=== PATIENT | male | born 1990 | race African-American/Black ===

== ENCOUNTER 2018-08-06 10:39 | Inpatient (IN) ==
[2018-08-06 11:15] LABS: Basophils % 0.4 % (0.0-0.8); Eosinophils % 0.4 % (0.00-10.9); Hematocrit 41.4 VOL% (42.0-52.0); Immature Granulocytes % 0.4 %; Immature Granulocytes Absolute 0.03 #; Lymphocytes # 1.4 10*3/uL (1.4-4.0); Lymphocytes % 18.3 % (21.2-54.2); Mean Corpuscular HGB Conc 31.4 GM/DL (32-36); Mean Corpuscular Hemoglobin 28 PG (27-34); Mean Corpuscular Volume 89.4 FL (87-102); Mean Platelet Volume 11.3 FL (9.6-12.0); Monocytes # 1.3 10*3/uL (0.11-0.8); Monocytes % 15.9 % (1.7-12.7); Neutrophils # 5.1 10*3/uL (1.4-7.4); Neutrophils % 64.6 % (38.7-73.9); Platelet Count 223 T/CUMM (130-400); Red Blood Count 4.63 MC/CUMM (3.8-5.5); Red Cell Distribution Width 17.1 % (9.3-17.3); White Blood Count 7.9 T/CUMM (4-12)
[2018-08-06] MEDS ORDERED: ENOXAPARIN 30 MG/0.3 ML SYRINGE SUBCUT STA (11:22)
[2018-08-06 11:28] LABS: INR 1.1; PT Patient Result 11.1 SECS; Partial Thromboplastin Time 31.4 SECS (0-40)
[2018-08-06 11:33] LABS: Albumin 3.7 G/DL (3.4-5.0); Bilirubin,Total 0.8 MG/DL (0.2-1.0); Calcium 9.4 MG/DL (8.5-10.1); Osmolality,Calculated 278.4 MOS/KG (273-304); Potassium 4.3 MMOL/L (3.5-5.1); Total Protein 7.8 G/DL (6.4-8.3)
[2018-08-06] MEDS ORDERED: ENOXAPARIN 120 MG/0.8 ML SYRINGE SUBCUT ONE (11:34)
[2018-08-06 11:55] LABS: Eosinophils 2 % (0-10); Lymphocytes 12 % (20-55); Platelet Estimate Adequate; Segmented Neutrophils 76 % (50-85); Total Cells Counted 100
[2018-08-06] MEDS ORDERED: MORPHINE 4 MG/1 ML VIAL IV PRN (12:19)
[2018-08-06] MEDS ORDERED: ONDANSETRON 4 MG/2 ML VIAL IV PRN (12:19)
[2018-08-06] MEDS ORDERED: DOCUSATE SODIUM 100 MG CAPSULE PO PRN (12:19)
[2018-08-06] MEDS ORDERED: diphenhydrAMINE CAP 25 MG CAPSULE PO PRN (12:19)
[2018-08-06] MEDS ORDERED: ACETAMINOPHEN 325 MG TABLET PO PRN (12:19)
[2018-08-06] MEDS ORDERED: ASPIRIN EC 81 MG TABLET PO SCH (12:30)
[2018-08-06] MEDS ORDERED: PANTOPRAZOLE 40 MG TABLET PO SCH (12:30)
[2018-08-06] MEDS ORDERED: PNEUMOCOCCAL VACCINE (13 VALENT) 0.5 ML SYRINGE IM ONE (13:53)
[2018-08-06] MEDS: SPIRONOLACTONE 25 MG TABLET PO SCH (15:07)
[2018-08-06] MEDS: COLCHICINE 0.6 MG TABLET PO SCH (15:08)
[2018-08-06] MEDS: LISINOPRIL 10 MG TABLET PO SCH (15:08)
[2018-08-06] MEDS: CITALOPRAM 20 MG TABLET PO SCH (15:08)
[2018-08-06] MEDS: METOPROLOL SUCCINATE XL 100 MG TABLET PO SCH (15:09)
[2018-08-06] MEDS: ALLOPURINOL 300 MG TABLET PO SCH (15:09)
[2018-08-06] MEDS: SODIUM CHLORIDE 0.9% 1,000 ML IV SCH ×2 (15:13→22:22)
[2018-08-06] MEDS ORDERED: ALUMINUM/MAGNES/SIMETH MAX STR 30 ML UDCUP PO PRN (17:10)
[2018-08-06] MEDS ORDERED: hydrALAZINE 20 MG/1 ML VIAL IV PRN (19:06)
[2018-08-06] MEDS: PANTOPRAZOLE 40 MG TABLET PO SCH (21:13)
[2018-08-07] MEDS: SODIUM CHLORIDE 0.9% 1,000 ML IV SCH (01:21)
[2018-08-07 04:39] LABS: Basophils % 0.3 % (0.0-0.8); Eosinophils % 0.6 % (0.00-10.9); Hematocrit 37.6 VOL% (42.0-52.0); Hemoglobin 11.6 GM/DL (14.0-18.0); Immature Granulocytes % 0.1 %; Immature Granulocytes Absolute 0.01 #; Lymphocytes # 1.8 10*3/uL (1.4-4.0); Lymphocytes % 25.3 % (21.2-54.2); Mean Corpuscular HGB Conc 30.9 GM/DL (32-36); Mean Corpuscular Hemoglobin 27 PG (27-34); Mean Corpuscular Volume 88.7 FL (87-102); Mean Platelet Volume 12.1 FL (9.6-12.0); Monocytes # 1.2 10*3/uL (0.11-0.8); Monocytes % 16.2 % (1.7-12.7); Neutrophils # 4.1 10*3/uL (1.4-7.4); Neutrophils % 57.5 % (38.7-73.9); Platelet Count 222 T/CUMM (130-400); Red Blood Count 4.24 MC/CUMM (3.8-5.5); Red Cell Distribution Width 16.9 % (9.3-17.3); White Blood Count 7.1 T/CUMM (4-12)
[2018-08-07 05:09] LABS: Band Neutrophils 4 % (0-10); Eosinophils 1 % (0-10); Lymphocytes 27 % (20-55); Segmented Neutrophils 58 % (50-85); Total Cells Counted 100
[2018-08-07 05:10] LABS: Hypochromasia Slight; Platelet Estimate Normal
[2018-08-07 05:22] LABS: Calcium 8.9 MG/DL (8.5-10.1); Osmolality,Calculated 276.5 MOS/KG (273-304); Risk Ratio 3.66; Thyroid Stimulating Hormone 0.456 uIU/ml (0.358-3.74)
[2018-08-07] MEDS: SPIRONOLACTONE 25 MG TABLET PO SCH (08:12)
[2018-08-07] MEDS: LISINOPRIL 10 MG TABLET PO SCH (08:13)
[2018-08-07] MEDS: COLCHICINE 0.6 MG TABLET PO SCH (08:13)
[2018-08-07] MEDS: CITALOPRAM 20 MG TABLET PO SCH (08:13)
[2018-08-07] MEDS: PANTOPRAZOLE 40 MG TABLET PO SCH (08:13)
[2018-08-07] MEDS: ALLOPURINOL 300 MG TABLET PO SCH (08:14)
[2018-08-07] MEDS: METOPROLOL SUCCINATE XL 100 MG TABLET PO SCH (08:14)
[2018-08-07] MEDS ORDERED: ENOXAPARIN 40 MG/0.4 ML SYRINGE SUBCUT SCH (13:00)
[2018-08-07 15:59] VITALS: BP 132/85
[2018-08-07] MEDS ORDERED: ACETAMINOPHEN 325 MG TABLET PO PRN (16:43)
[2018-08-07] MEDS ORDERED: NITROGLYCERIN DRIP 50 MG/250 ML BOTTLE IV SCH (17:00)
== END 2018-08-07 18:23 | disposition hospice, home (50) | DRG 300 ==
LOC: N.ED 10:39 → N.EDINP 10:39 → N.2W 13:38 → N.TELEN 16:19
PROVIDERS: ADMIT Internal Medicine; ATTEND Internal Medicine